=== PATIENT | male | born 1980 | race Caucasian/White ===

== ENCOUNTER 2025-03-10 06:51 | Day surgery (SDC) | payer BC ==
[~2025-03-10 06:51] MED LIST: Sodium Chloride 0.9% 10 ML Syringe FLUSH PRN; Sodium Chloride 0.9% 10 ML Syringe FLUSH SCH
[2025-03-10] MEDS ORDERED: Propofol 200 MG/20 ML SDV ONE (06:52)
[2025-03-10] MEDS ORDERED: Midazolam 1 MG/ML 2 ML SDV ONE (06:52)
[2025-03-10] MEDS ORDERED: Lidocaine 1% 4 ML ONE (06:52)
[2025-03-10] MEDS: Lactated Ringers 1,000 ML IV SCH (07:05)
== END 2025-03-10 08:30 | disposition home or self-care (01) ==
LOC: JD.SDS 06:51
PROVIDERS: ATTEND Surgery
DX: Z12.11 Encounter for screening for malignant neoplasm of colon (principal); K57.30 Diverticulosis of large intestine without perforation or abscess without bleeding; Z80.0 Family history of malignant neoplasm of digestive organs; Z88.0 Allergy status to penicillin; Z85.07 Personal history of malignant neoplasm of pancreas; Z86.0100 Personal history of colon polyps, unspecified
CPT/HCPCS: 45378; J2003; J2250; J2704; J7120